=== PATIENT | male | born 1990 | race Two or more races ===

== ENCOUNTER 2019-10-27 20:59 | Emergency (ER) | payer SELFPAY ==
[~2019-10-27] VITALS: Ht 177.8 cm; Wt 83.9 kg
[2019-10-28 00:05] VITALS: BP 160/89
[2019-11-06] MEDS ORDERED: HYDR200T36 PO (12:13)
[2019-11-06] MEDS ORDERED: ZINC220T6 PO (12:17)
[2019-11-06] MEDS ORDERED: ASCO10003 PO (12:17)
[2019-11-06] MEDS ORDERED: DOX100T PO (12:17)
== END 2019-10-28 00:07 | disposition home or self-care (01) ==
LOC: ER 21:11
DX: U07.1 COVID-19 (principal); J06.9 Acute upper respiratory infection, unspecified
CPT/HCPCS: 71045; 87070; 87804; 87880; 99284; C9803; U0003; 87635; 99001

== ENCOUNTER 2019-11-03 16:50 | Inpatient (IN) | payer SELFPAY ==
[~2019-11-03] VITALS: Ht 177.8 cm; Wt 87.0 kg
[2019-11-03] MEDS ORDERED: SODIUM CHLORIDE 0.9% 1,000 ML IV ONE ×4 (17:19)
[2019-11-03] MEDS ORDERED: cefTRIAXone 1GM/50ML D5W 50 ML IV ONE (17:30)
[2019-11-03] MEDS ORDERED: ASCORBIC ACID 500 MG TAB PO ONE (17:30)
[2019-11-03] MEDS ORDERED: AZITHROMYCIN 500MG/ 250ML 250 ML IV ONE (17:30)
[2019-11-03] MEDS ORDERED: ZINC SULFATE 220mg CAP or TAB PO ONE (17:30)
[2019-11-03] MEDS ORDERED: SODIUM CHLORIDE 0.9% 1,000 ML IV SCH (17:37)
[2019-11-03] MEDS ORDERED: METOCLOPRAMIDE HCL 5MG/ml INJ 2ml VIAL IV PRN (17:45)
[2019-11-03] MEDS ORDERED: ACETAMINOPHEN 500 MG TAB PO PRN (17:45)
[2019-11-03] MEDS ORDERED: LORazepam 0.5 MG TAB PO PRN (17:45)
[2019-11-03] MEDS ORDERED: HYDROcodone-ACET 5/325MG TAB PO PRN (17:45)
[2019-11-03] MEDS ORDERED: MORPHINE SULFATE 4 MG/ML SYR/VIAL IV PRN (17:45)
[2019-11-03] MEDS ORDERED: ALUM & MAG HYDROX-SIMETH LIQ(MAALOX) 30 ML PO PRN (17:45)
[2019-11-03] MEDS ORDERED: MORPHINE SULF INJ 2 MG/ML SYRINGE 1ML IV PRN (17:45)
[2019-11-03] MEDS ORDERED: NITROGLYCERIN 0.4 MG SL TAB SL PRN (17:45)
[2019-11-03] MEDS: ZINC SULFATE 220mg CAP or TAB PO SCH (18:12)
[2019-11-03 18:26] LABS: Basophils # (auto) 0.1 10 ^3/uL (0-0.2); Basophils % (auto) 0.7 % (0.0-2.0); Eosinophils # (auto) 0.2 10 ^3/uL (0-0.8); Eosinophils % (auto) 2.3 % (0.0-7.0); Hemoglobin 16.4 g/dL (13.5-17.5); Lymphocytes # (auto) 2.1 10 ^3/uL (0.4-5.4); Lymphocytes % (auto) 23.5 % (10.0-50.0); Mean Corpuscular Hemoglobin 30.4 pg (28.0-32.0); Mean Corpuscular Hgb Conc. 32.7 g/dL (32.0-36.0); Mean Corpuscular Volume 92.9 fL (80.0-100.0); Monocytes # (auto) 0.6 10 ^3/uL (0-1.3); Monocytes % (auto) 6.4 % (0.0-12.0); Neutrophils % (auto) 67.1 % (37.0-80.0); Nucleated Red Blood Cells % 0.1 %; Platelet Count (auto) 322 10^3/uL (140-450); Red Blood Cells 5.38 10^6/uL (4.5-5.90); Red Cell Distribution Width 12.9 % (11.8-14.3); White Blood Cell 8.9 10^3/uL (4.4-10.8)
[2019-11-03 18:28] LABS: Urine Bacteria NONE SEEN /hpf (None Seen); Urine Blood Negative /uL (Negative); Urine Specific Gravity 1.004 (1.001-1.035); Urine WBC <1 /hpf (0 - 3)
[2019-11-03 18:43] LABS: Albumin 4.4 g/dL (3.4-5.0); Anion Gap 7 (5-15); Blood Urea Nitrogen 7 mg/dL (7-18); Calcium 8.9 mg/dL (8.5-10.1); Carbon Dioxide 26 mmol/L (21-32); Chloride 106 mmol/L (98-107); Glucose 91 mg/dL (74-106); Magnesium 2.6 mg/dL (1.6-2.6); Potassium 4.1 mmol/L (3.5-5.1); Sodium 139 mmol/L (136-145)
[2019-11-03 18:49] LABS: Alanine Aminotransferase 28 U/L (16-61); Alkaline Phosphatase 71 U/L (45-117); Aspartate Aminotransferase 18 U/L (15-37); BUN/Creatinine Ratio 4.8; Bilirubin, Total 0.5 mg/dL (0.2-1.0); GFR African American 72 mL/min; GFR Non-African American 59 mL/min; Lactate Dehydrogenase 202 U/L (87-241); Total Protein 8.3 g/dL (6.4-8.2)
[2019-11-03 19:30] VITALS: BP 125/86
--- NOTE | 2019-11-03 19:30 | NUR ---
Telemetry admit from ER JENNIFFER BOOTH admitted to Telemetry unit after no SBAR received. Patient oriented to HAROON STEIN, RN primary RN, unit, room, bed, and unit policies regarding patient care and visiting hours. Patient now on continuous telemetry monitoring, tele box # 2 and telemetry reading on arrival to unit is SR . Patient placed on bedside oxygen, weighed by bedscale and encouraged to call if they need something. All questions and concerns addressed, patient verbalized understanding.
--- NOTE | 2019-11-03 21:30 | NUR ---
IS patient educated on how to use IS patient verbalized understanding,patient return demonstration.
[2019-11-03] MEDS: DOXYCYCLINE 100MG/250ML 250 ML IV SCH (21:44)
[2019-11-03] MEDS: ALBUTEROL SULF HFA 90MCG INH 200DOSE IN SCH (21:44)
[2019-11-03 21:47] VITALS: BP 125/81
[2019-11-04 01:56] VITALS: BP 132/86
[2019-11-04 02:02] VITALS: BP 132/86
--- NOTE | 2019-11-04 03:55 | NUR ---
Respiratory note: PT'S SCHEDULED MDI TREATMENT WAS ADMINISTERED BY SONJA PATIÑO AT 2144. PT ASSESSED AT THIS TIME AND NO DISTRESS NOTED. RN WAS AT BEDSIDE. HR 80 RR 18 SP02 98% ON ROOM AIR.
--- NOTE | 2019-11-04 04:00 | NUR ---
UNABLE TO DRAW BLOOD AFTER 2 ATTEMPTS. LABORATORY CALLED TO COME OBTAIN SCHEDULED LABS
--- NOTE | 2019-11-04 04:10 | NUR ---
PATIENT OXYGEN LEVEL DECREASES WHEN AMBULATING. PATIENT DENIES SOB DISTRESS OR PAIN. PATIENT ENCOURAGED TO TAKE DEEP BREATHS.
[2019-11-04 05:51] VITALS: BP 123/84
--- NOTE | 2019-11-04 05:55 | NUR ---
UNABLE TO DRAW BLOOD AFTER 2 ATTEMPTS. LABORATORY CALLED TO COME OBTAIN SCHEDULED LABS
[2019-11-04] MEDS: ALBUTEROL SULF HFA 90MCG INH 200DOSE IN SCH ×3 (05:57→20:51)
--- NOTE | 2019-11-04 06:26 | NUR ---
LAB AT BEDSIDE
[2019-11-04 07:03] LABS: Chloride 108 mmol/L (98-107); Potassium 4.7 mmol/L (3.5-5.1); Sodium 141 mmol/L (136-145)
[2019-11-04 07:04] LABS: Basophils # (auto) 0 10 ^3/uL (0-0.2); Basophils % (auto) 0.3 % (0.0-2.0); Eosinophils # (auto) 0.1 10 ^3/uL (0-0.8); Eosinophils % (auto) 2.2 % (0.0-7.0); Hematocrit 45.5 % (41.0-53.0); Hemoglobin 14.9 g/dL (13.5-17.5); Lymphocytes # (auto) 1.6 10 ^3/uL (0.4-5.4); Lymphocytes % (auto) 26.9 % (10.0-50.0); Mean Corpuscular Hemoglobin 30.3 pg (28.0-32.0); Mean Corpuscular Hgb Conc. 32.7 g/dL (32.0-36.0); Mean Corpuscular Volume 92.6 fL (80.0-100.0); Monocytes # (auto) 0.4 10 ^3/uL (0-1.3); Monocytes % (auto) 6.9 % (0.0-12.0); Neutrophils # (auto) 3.8 10 ^3/uL (1.6-8.6); Neutrophils % (auto) 63.7 % (37.0-80.0); Nucleated Red Blood Cells % 0.3 %; Platelet Count (auto) 239 10^3/uL (140-450); Red Blood Cells 4.92 10^6/uL (4.5-5.90); Red Cell Distribution Width 12.6 % (11.8-14.3); White Blood Cell 5.9 10^3/uL (4.4-10.8)
--- NOTE | 2019-11-04 07:05 | NUR ---
REPORT GIVEN TO DAYSHIFT RN PATIENT DENIES SOB DISTRESS OR PAIN. CARE ENDORSE TO RN TO OBTAIN URINE SAMPLE. PER LABORATORY [facility] URINE SAMPLE SENT WAS NOT OBTAINED.
[2019-11-04 07:10] LABS: INR 1.09 (0.9-1.15); Partial Thromboplastin Time 25.9 sec (23.64-32.05)
[2019-11-04 07:17] LABS: Alanine Aminotransferase 25 U/L (16-61); Albumin 3.6 g/dL (3.4-5.0); Alkaline Phosphatase 60 U/L (45-117); Anion Gap 3 (5-15); Aspartate Aminotransferase 16 U/L (15-37); BUN/Creatinine Ratio 5.6; Bilirubin, Total 0.6 mg/dL (0.2-1.0); Blood Urea Nitrogen 8 mg/dL (7-18); Calcium 8.5 mg/dL (8.5-10.1); Carbon Dioxide 30 mmol/L (21-32); Cholesterol 145 mg/dL (< 200); Creatine Kinase IFCC 177 U/L (39-308); GFR African American 74 mL/min; GFR Non-African American 61 mL/min; Glucose 94 mg/dL (74-106); HDL Cholesterol 41 mg/dL (40-59); LDL Cholesterol 90 mg/dL (< 100); Lactate Dehydrogenase 125 U/L (87-241); Magnesium 2.5 mg/dL (1.6-2.6); Phosphorus 3.2 mg/dL (2.5-4.90); Total Protein 6.8 g/dL (6.4-8.2); Triglycerides 74 mg/dL (< 150); Uric Acid 5.3 mg/dL (3.5-7.2)
--- NOTE | 2019-11-04 07:17 | NUR ---
Respiratory note: PT ASSESSED SAYS HE SELF ADMINISTERED ALB INH AT 06:00. PT DENIES SOB OR DIFF BREATHING. NO DISTRESS NOTED. HR 59 RR 16 SPO2 98% ON RA. PT AND RN AWARE TO HAVE RT PAGED IF NEEDED.
--- NOTE | 2019-11-04 07:18 | NUR ---
Opening Shift Note Assumed care of patient, awake and alert. No S/S of distress/SOB or pain. Instructed on POC and to call for assist PRN, will continue to monitor for changes Q1hr and PRN.
[2019-11-04 08:21] VITALS: BP 136/96
[2019-11-04] MEDS: DOXYCYCLINE 100MG/250ML 250 ML IV SCH ×2 (09:41→20:26)
[2019-11-04] MEDS: ZINC SULFATE 220mg CAP or TAB PO SCH (09:42)
[2019-11-04] MEDS: ASCORBIC ACID 1,000 MG TAB PO SCH (09:42)
[2019-11-04] MEDS: CHOLECALCIFEROL (VITD3) 1,000IU=25mCg TAB PO SCH (09:42)
[2019-11-04] MEDS: ENOXAPARIN SOD 40 MG/0.4 ML SYRINGE SC SCH (09:43)
[2019-11-04 09:53] LABS: Urine WBC None Seen /hpf (0 - 3)
--- NOTE | 2019-11-04 10:00 | NUR ---
rounded on patient pt on room air saturation 97-100% stated "i feel so much better, can i go home" advised pt i will notify md when he rounds per pt verbalized understanding.
[2019-11-04 10:07] LABS: Urine Bacteria NONE SEEN /hpf (None Seen); Urine Blood Negative /uL (Negative); Urine Specific Gravity 1.002 (1.001-1.035)
[2019-11-04 10:13] LABS: Alcohol, Urine < 3.0 mg/dL (0-5); Amphetamine Screen, Urine NEGATIVE (NEGATIVE); Barbiturate Scree,Urine NEGATIVE (NEGATIVE); Benzodiazephine Screen, Urine NEGATIVE (NEGATIVE); Cannabinoid Screen, Urine NEGATIVE (NEGATIVE); Cocaine Screen, Urine NEGATIVE (NEGATIVE); Opiate Scree,Urine NEGATIVE (NEGATIVE); Phencyclidine Screen, Urine NEGATIVE (NEGATIVE)
--- NOTE | 2019-11-04 12:09 | NUR ---
rounded on pt pt laying in bed watching tv no pain or respiratory distress noted on room air
[2019-11-04 12:21] VITALS: BP 114/83
--- NOTE | 2019-11-04 14:47 | NUR ---
Respiratory note: PT SELF ADMINISTERED ALB INH AT 14:00 PER RN ANJALI. HR 94 RR 16 SPO2 96% ON RA. RN AWARE TO HAVE RT PAGED IF NEEDED.
--- NOTE | 2019-11-04 15:20 | NUR ---
md burr called updated on pt plan of care she stated she will call pt herself to round on him and come to unit when she is in proper ppr later. md put in stat covid swab because she "feel like pt is negative" per pt he did not have sob just chest pressure when lying down and since he did not recieve antibiotics when he was in the tent outside er a week ago he wanted to come back to see if he can get antibiotics, per pt "i feel amazing i got antibiotics i can take them at home can i go home" as noted in previous note, informed md thompson that pt is stable o2sat above 95% on room air vitals are good and all labs are within normal range per md "he can ama if he wants to go i want to retest make sure he is negative". tank charger now on unit informed her of pt status tank charger called md nesbitt to review plan of care also md soto made aware of pt status and med surg director made aware
--- NOTE | 2019-11-04 15:43 | NUR ---
per lab swab will not be ran till 0800 11/05/19 per lab please send in morning to be a fresh specimen will endorse to shift supervisor rn rn
--- NOTE | 2019-11-04 16:09 | NUR ---
went to speak with pt regarding md plan of care per pt "i dont understand why im gonna stay here cant you take the swab and i get the results at home im taking a bed away from someone who is really sick" made pt aware he will sign ama made insulation cupola charger aware
--- NOTE | 2019-11-04 16:13 | NUR ---
pt called me to the room stated "im not gonna leave ill wait till tomorrow" insulation cupola charger made aware
--- NOTE | 2019-11-04 19:25 | NUR ---
Opening Shift Note Assumed care of patient, awake and alert and oriented x4, No S/S of distress/SOB or pain reported at this time, currently on room air. Instructed on POC and to call for assist PRN, call light within reach, encouraged to use incentive spirometer Q1HR [place], patient able to demonstrate how didi use IS, will continue to monitor for changes Q1hr and PRN.
[2019-11-04 20:00] VITALS: BP 126/88
--- NOTE | 2019-11-04 20:51 | NUR ---
Respiratory note: PT'S SCHEDULED MDI TREATMENT WAS SELF ADMINISTERED . HR 82 RR 16 SP02 98% ON ROOM AIR.
[2019-11-05 03:00] VITALS: BP 91/57
--- NOTE | 2019-11-05 03:41 | NUR ---
PT CURRENTLY SLEEPING NO DISTRESS NOTED,O2 ON RA 97%, CONT CARE Addendum: 11/05/19 at 0342 by Donya Zepeda RN Amended: Links added.
[2019-11-05] MEDS: ALBUTEROL SULF HFA 90MCG INH 200DOSE IN SCH ×3 (07:15→22:00)
--- NOTE | 2019-11-05 07:15 | NUR ---
RT NOTE: WENT TO PTS ROOM TO ADMINISTER BREATHING TX, PT STATED HE HAD ALREADY SELF ADMINISTERED TX, HR 78, RR 16, SPO2 98% ON RA, WILL CONTINUE TO MONITOR PT.
[2019-11-05 08:00] VITALS: BP 109/86
--- NOTE | 2019-11-05 08:00 | NUR ---
OPENING SHIFT NOTE ASSUMED CARE OF PATIENT AWAKE AND ALERT. NO S/S OF DISTRESS NOTED OR COMPLAINTS OF PAIN. PATIENT UPDATED ON POC FOR THE DAY AND ALL QUESTIONS ANSWERED. BED IS IN LOWEST, LOCKED POSITION WITH SIDE RAILS UP X2 AND CALL LIGHT WITHIN REACH. WILL CONTINUE TO MONITOR Q1H AND PRN.
[2019-11-05] MEDS: DOXYCYCLINE 100MG/250ML 250 ML IV SCH (09:57)
[2019-11-05] MEDS: ZINC SULFATE 220mg CAP or TAB PO SCH (09:57)
[2019-11-05] MEDS: ENOXAPARIN SOD 40 MG/0.4 ML SYRINGE SC SCH (09:58)
[2019-11-05] MEDS: CHOLECALCIFEROL (VITD3) 1,000IU=25mCg TAB PO SCH (09:58)
[2019-11-05] MEDS: ASCORBIC ACID 1,000 MG TAB PO SCH (09:58)
--- NOTE | 2019-11-05 11:32 | NUR ---
Received referral for pt that is listed as having no insurance. Pt is currently unemployed due to Illness. Discussed with pt elgibility options for medical coverage based on their current situation. Pt referred to Brad Godfrey, [facility] j2ee consultant to assist with process for [facility] insurance coverage. Advised pt that additional information regarding d/c planning would be provided prior to their discharge. Will follow up with Brad regarding the insurance status. Addendum: 11/05/19 at 1146 by JET MATIAS After speaking with Brad Pt was determined to be over income for medical.
[2019-11-05 13:00] VITALS: BP 119/99
--- NOTE | 2019-11-05 14:00 | NUR ---
RT NOTE: PT SELF ADMINISTERED BREATHING TX, DONE BY RN. WILL CONTINUE TO MONITOR PT.
--- NOTE | 2019-11-05 16:05 | NUR ---
AT BEDSIDE DR GU AT BEDSIDE UPDATING PATIENT ON POC. PATIENT VERBALIZED UNDERSTANDING.
[2019-11-05 17:00] VITALS: BP_SYST 118; BP_SYST 135; BP_DIAS 83; BP_DIAS 87
--- NOTE | 2019-11-05 19:15 | NUR ---
OPENING SHIFT NOTE: ASSUMED CARE OF PATIENT. PATIENT IS AWAKE, ALERT AND ORIENTED X 4. NO S/S OF SOB OR DISTRESS, O2 IS 98% ON ROOM AIR AND RESPIRATIONS ARE EVEN AND NON-LABORED. INSTRUCTED PATIENT ON POC AND ENCOURAGED TO CALL FOR ASSISTANCE, ALL QUESTIONS ANSWERED AT THIS TIME AND PATIENT VERBALIZES UNDERSTANDING. PROPER ISOLATION IN PLACE, BED IS IN LOWEST POSITION, LOCKED, TWO SIDE RAILS RAISED, AND CALL KELLOGG IS WITHIN REACH. WILL CONTINUE TO MONITOR PT Q1 HR AND PRN.
[2019-11-05 20:00] VITALS: BP 118/83
[2019-11-05] MEDS: DOXYCYCLINE 100 MG TAB/CAP PO SCH (22:17)
--- NOTE | 2019-11-05 23:19 | NUR ---
RT NOTE RT WAS PAGED TO CALL RN. RT SPOKE WITH SONJA COSTA RE: MDI TREATMENT. RN SAID SHE HAD ADMINISTERED THE INHALER WHEN SHE WAS GIVING HER MEDICATIONS. RN REQUESTING AN AEROCHAMBER FOR PT TO TAKE INHALER WITH. ONE WAS PROVIDED. RN ASSESSED PT. CONT ORDERED
[2019-11-06] VITALS: BP 113/84
[2019-11-06 04:00] VITALS: BP 117/70
--- NOTE | 2019-11-06 05:30 | NUR ---
LABS DRAWN AND SENT TO LAB. Addendum: 11/06/19 at 0626 by JULISSA RODRIGUEZ RN RN LOLY SYSTEM DOWN, CALLED LAB TO AIR TRAFFIC CONTROL OPERATOR BLOOD.
[2019-11-06] MEDS: ALBUTEROL SULF HFA 90MCG INH 200DOSE IN SCH ×2 (06:17→14:00)
--- NOTE | 2019-11-06 06:18 | NUR ---
MDI INHALER ADMINISTERED BY SONJA COSTA.
[2019-11-06 07:18] LABS: BUN/Creatinine Ratio 10.3; Calcium 8.6 mg/dL (8.5-10.1)
--- NOTE | 2019-11-06 08:00 | NUR ---
OPENING SHIFT NOTE ASSUMED CARE OF PATIENT AWAKE AND ALERT. NO S/S OF DISTRESS NOTED OR COMPLAINTS OF PAIN. PATIENT UPDATED ON POC FOR THE DAY AND ALL QUESTIONS ANSWERED. PROPER ISOLATION PRECAUTIONS IN PLACE. BED IS IN LOWEST, LOCKED POSITION WITH SIDE RAILS UP X2 AND CALL LIGHT WITHIN REACH. WILL CONTINUE TO MONITOR Q1H AND PRN.
[2019-11-06] MEDS: CHOLECALCIFEROL (VITD3) 1,000IU=25mCg TAB PO SCH (09:40)
[2019-11-06] MEDS: DOXYCYCLINE 100 MG TAB/CAP PO SCH (09:40)
[2019-11-06] MEDS: ZINC SULFATE 220mg CAP or TAB PO SCH (09:40)
[2019-11-06] MEDS: ASCORBIC ACID 1,000 MG TAB PO SCH (09:40)
[2019-11-06] MEDS: ENOXAPARIN SOD 40 MG/0.4 ML SYRINGE SC SCH (09:41)
[2019-11-06] MEDS ORDERED: HYDR200T36 PO (12:13)
[2019-11-06] MEDS ORDERED: ASCO10003 PO (12:17)
[2019-11-06] MEDS ORDERED: DOX100T PO (12:17)
[2019-11-06] MEDS ORDERED: ZINC220T6 PO (12:17)
--- NOTE | 2019-11-06 13:33 | NUR ---
Discharge instructions given as ordered. Encourage to follow up with Desire Chong and Simeon Godfrey as instructed. All questions and concerns addressed. Patient verbalized understanding. IV removed with catheter intact, pressure dressing applied. Telemetry unit returned to ICU. Patient taken to vehicle via wheelchair with all personal belongings, accompanied by staff member, EVS and security. No distress noted at time of departure.
== END 2019-11-06 13:30 | disposition home or self-care (01) | DRG 177 ==
LOC: ER 16:50 → TELE 16:51 → TELE-EAST 19:10
PROVIDERS: ADMIT Hospitalist; ATTEND Internal Medicine
DX: U07.1 COVID-19 (principal); J18.9 Pneumonia, unspecified organism; N17.0 Acute kidney failure with tubular necrosis; J12.89 Other viral pneumonia; N18.9 Chronic kidney disease, unspecified; Z82.49 Family history of ischemic heart disease and other diseases of the circulatory system; Z79.899 Other long term (current) drug therapy
CPT/HCPCS: 36415; 71045; 80048; 80053; 80061; 80307; 81001; 82550; 82728; 83036; 83605; 83615; 83735; 83880; 84100; 84443; 84484; 84550; 85025; 85045; 85379; 85610; 85652; 85730; 86141; 87040; 93005; 94640; 99291; G0378; J0696; J3490

== ENCOUNTER 2019-12-16 14:05 | Emergency (ER) | payer MEDICAID, SELFPAY ==
[~2019-12-16] VITALS: Ht 177.8 cm; Wt 86.2 kg
[~2019-12-16 14:05] MED LIST: ASCO10003 PO; DOX100T PO; HYDR200T36 PO; ZINC220T6 PO
[2019-12-16 15:07] LABS: Basophils # (auto) 0 10 ^3/uL (0-0.2); Basophils % (auto) 0.5 % (0.0-2.0); Eosinophils # (auto) 0.1 10 ^3/uL (0-0.8); Eosinophils % (auto) 1.6 % (0.0-7.0); Hematocrit 46.3 % (41.0-53.0); Hemoglobin 15.5 g/dL (13.5-17.5); Lymphocytes # (auto) 1.6 10 ^3/uL (0.4-5.4); Lymphocytes % (auto) 28.5 % (10.0-50.0); Mean Corpuscular Hemoglobin 30.6 pg (28.0-32.0); Mean Corpuscular Hgb Conc. 33.4 g/dL (32.0-36.0); Mean Corpuscular Volume 91.6 fL (80.0-100.0); Monocytes # (auto) 0.3 10 ^3/uL (0-1.3); Monocytes % (auto) 5.5 % (0.0-12.0); Neutrophils # (auto) 3.6 10 ^3/uL (1.6-8.6); Neutrophils % (auto) 63.9 % (37.0-80.0); Nucleated Red Blood Cells % 0.2 %; Platelet Count (auto) 243 10^3/uL (140-450); Red Blood Cells 5.06 10^6/uL (4.5-5.90); Red Cell Distribution Width 12.7 % (11.8-14.3); White Blood Cell 5.7 10^3/uL (4.4-10.8)
[2019-12-16 15:27] LABS: Albumin 4.4 g/dL (3.4-5.0); Calcium 8.8 mg/dL (8.5-10.1)
[2019-12-16 15:29] LABS: BUN/Creatinine Ratio 7.8
[2019-12-16 15:32] LABS: Bilirubin, Total 0.6 mg/dL (0.2-1.0); Total Protein 7.9 g/dL (6.4-8.2)
[2019-12-16 16:12] VITALS: BP 135/78
[2019-12-16 16:19] LABS: Urine WBC None Seen /hpf (0 - 3)
[2019-12-16 16:34] LABS: Urine Bacteria NONE SEEN /hpf (None Seen); Urine Blood Negative /uL (Negative); Urine Specific Gravity 1.002 (1.001-1.035)
== END 2019-12-16 16:18 | disposition home or self-care (01) ==
LOC: ER 14:05
DX: N13.30 Unspecified hydronephrosis (principal)
CPT/HCPCS: 36415; 74176; 80053; 81001; 85025; 99284; J7030